=== PATIENT | female | born 1975 | race American Indian/Alaskan Native ===

== ENCOUNTER 2016-05-07 11:36 | Day surgery (SDC) | payer BC ==
[~2016-05-07 11:36] MED LIST: ANCEF/STERILE WATER 2 GM/20 ML 20 ML IV NR; HEPARIN SUB-Q NR; ceFAZolin 2 GM in NACL 0.9% 100 ML IV ONE
[2016-05-07] MEDS ORDERED: NACL BACTERIOSTATIC INFILTRATI ONE (11:52)
--- NOTE | 2016-05-07 12:35 | Anesthesia Day of Surgery ---
Anesthesia Day of Surgery - Day of Surgery Patient Examined: Yes Patient H&P Reviewed: Yes Patient is NPO: Yes
--- NOTE | 2016-05-07 12:38 | Anesthesia Consultation ---
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
[2016-05-07] MEDS ORDERED: ZOFRAN IV PRN ×2 (12:56→14:24)
[2016-05-07] MEDS ORDERED: NACL 0.9% 1000 ML 1,000 ML IV SCH (13:00)
[2016-05-07] MEDS ORDERED: VERSED IV NR (13:00)
[2016-05-07] MEDS ORDERED: PEPCID PO NR (13:00)
[2016-05-07] MEDS ORDERED: DILAUDID ONE (13:08)
[2016-05-07] MEDS ORDERED: DIPRIVAN 10 MG/ML IV ONE (13:08)
[2016-05-07] MEDS ORDERED: XYLOCAINE MPF 2% ONE (13:16)
[2016-05-07] MEDS ORDERED: ZEMURON IV ONE (13:17)
[2016-05-07] MEDS ORDERED: NACL 0.9% IR ONE (14:09)
[2016-05-07] MEDS ORDERED: MARCAINE-EPI 0.25%-1:200,000 INFILTRATI ONE (14:09)
[2016-05-07] MEDS ORDERED: PERCOCET 5/325 PO PRN ×2 (14:19→15:54)
[2016-05-07] MEDS ORDERED: ROBINUL ONE ×2 (14:20→14:27)
[2016-05-07] MEDS ORDERED: BLOXIVERZ ONE (14:20)
[2016-05-07] MEDS ORDERED: TORADOL ONE (14:20)
[2016-05-07] MEDS ORDERED: REGLAN IV PRN (14:24)
--- NOTE | 2016-05-07 14:38 | Short Stay Summary ---
Short Stay Documentation Date of service: 05/07/16 - Allergies and Medications Current Medications: Allergies No Known Allergies Allergy (Unverified 04/30/16 15:02) Home Medications Medication Instructions Recorded Confirmed Last Taken Type Empagliflozin [Jardiance] 10 mg PO QDAY 04/30/16 04/30/16 05/06/16 History Gabapentin [Neurontin] 300 mg PO Q8HR 04/30/16 04/30/16 05/06/16 History Metformin HCl [Glucophage] 1,000 mg PO BID 04/30/16 04/30/16 05/06/16 History Omeprazole Magnesium [PriLOSEC Otc] 20 mg PO BID 04/30/16 04/30/16 05/06/16 History Active Medications Famotidine (Pepcid) 20 mg PO PREOP NR Stop: 05/07/16 23:00 Last Admin: 05/07/16 12:57 Dose: 20 mg Heparin Sodium (Porcine) (Heparin) 5,000 unit SUB-Q PREOP NR Stop: 05/07/16 23:59 Last Admin: 05/07/16 13:09 Dose: 5,000 unit Hydromorphone HCl (Dilaudid) 0.5 mg IV Q10MIN PRN PRN Reason: Pain , Severe (7-10) Stop: 05/07/16 23:59 Cefazolin Sodium (Ancef/Sterile Water 2 Gm/20 Ml) 20 mls @ 80 mls/hr IV PREOP NR Stop: 05/10/16 23:59 Sodium Chloride (Nacl 0.9% 1000 Ml) 1,000 mls @ 75 mls/hr IV DIRECT FAITH Last Admin: 05/07/16 13:05 Dose: 75 mls/hr Midazolam HCl (Versed) 2 mg IV PREOP NR Stop: 05/07/16 23:59 Last Admin: 05/07/16 13:09 Dose: 2 mg - Brief post op/procedure progress note Date of procedure: 05/07/16 Pre-op diagnosis: Biliary colic Post-op diagnosis: same Procedure: Laparoscopic cholecystectomy Anesthesia: GETA, local Surgeon: ELIOT MOY Training Executive: OPAL SYLVESTER Estimated blood loss: none Pathology: list (Gallbladder) Specimen disposition: to lab Condition: stable - Disposition Condition at discharge: Good Disposition: DISCHARGED TO HOME OR SELFCARE Short Stay Discharge Plan Activity: no restrictions Diet: regular Wound: remove dressing (05/09/16 and then may shower) Follow up with: TRE VALLE MD [Primary Care Provider] - 7 Days ELIOT MOY MD [Staff Physician] - 7 Days Prescriptions: Promethazine [Phenergan TAB] 25 mg PO Q6HR PRN #10 tab PRN Reason: Nausea oxyCODONE /ACETAMINOPHEN [Percocet 5/325] 1 - 2 tab PO Q4HR PRN #30 tab PRN Reason: Pain
[2016-05-07] MEDS: DILAUDID IV PRN ×2 (15:13→15:29)
[2016-05-07] MEDS ORDERED: PHENERGAN PO PRN (16:13)
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
[2016-05-07 18:25] VITALS: BP 149/86
== END 2016-05-07 16:45 | disposition home or self-care (01) ==
LOC: OR 11:36
PROVIDERS: ATTEND Surgery
DX: K80.70 Calculus of gallbladder and bile duct without cholecystitis without obstruction (principal); E11.40 Type 2 diabetes mellitus with diabetic neuropathy, unspecified; K21.9 Gastro-esophageal reflux disease without esophagitis; I10 Essential (primary) hypertension; M17.10 Unilateral primary osteoarthritis, unspecified knee; M46.90 Unspecified inflammatory spondylopathy, site unspecified; E66.9 Obesity, unspecified; Z68.31 Body mass index [BMI] 31.0-31.9, adult; Z98.890 Other specified postprocedural states; Z79.84 Long term (current) use of oral hypoglycemic drugs; Z82.49 Family history of ischemic heart disease and other diseases of the circulatory system
CPT/HCPCS: 47562; 81025; 82962; 88304; J0690; J1170; J1644; J1885; J2250; J2405; J2704; J2710; J7030; Q0169

== ENCOUNTER 2019-02-28 18:55 | Emergency (ER) | payer OTHER ==
[2019-02-28 19:28] VITALS: BP 138/83
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
[2019-02-28] MEDS ORDERED: HYDROcodone/ACETAMINOPHEN 5-325 MG TAB PO STA (21:16)
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
== END 2019-02-28 22:32 | disposition home or self-care (01) ==
LOC: ED 18:55
DX: M46.96 Unspecified inflammatory spondylopathy, lumbar region (principal); M79.10 Myalgia, unspecified site; I10 Essential (primary) hypertension; E11.9 Type 2 diabetes mellitus without complications; K21.9 Gastro-esophageal reflux disease without esophagitis; Z90.49 Acquired absence of other specified parts of digestive tract; Z79.899 Other long term (current) drug therapy; Z79.84 Long term (current) use of oral hypoglycemic drugs; V89.2XXA Person injured in unspecified motor-vehicle accident, traffic, initial encounter; Y93.89 Activity, other specified; Y92.488 Other paved roadways as the place of occurrence of the external cause; Y99.8 Other external cause status
CPT/HCPCS: 71046; 72100; 99283